=== PATIENT | female | born 1975 | race Caucasian/White ===

== ENCOUNTER 2024-04-06 11:24 | Outpatient (AMB) | payer MEDICARE, SELFPAY ==
--- NOTE | 2024-04-06 12:35 | AM.OFFWIN_ITS ---
Intake Vital Signs 04/06/24 12:36 Height 5 ft 4 in Weight 134 lb 4 oz BMI 23.0 BP 132/86 Blood Pressure Location Lt brachial Position Sitting Pulse 96 Pulse Source Pulse Oximeter Temp 98.0 F Temp Source Temporal Artery Scan Pulse Oximetry (%) 97 Oxygen Delivery Method Room Air Intake Visit Reasons: NURSE PRACTITIONER MANAGER-neck, rt shoulder pain Intake Note: Pt presents to the office today for neck pain and right shoulder pain. Pt states she has a history of spinal stenosis and degenerative disk disease. Pt states she has been dealing with this for years but recently has gotten worse. Pt states on Saturday she grabbed a liter of soda and the pain became excrutiating and caused numbness and radiating pain from her neck down to her right hand. Patient Tobacco Use Status: Never used Tobacco Allergies erythromycin base Allergy (Verified 04/06/24 12:41) Rash Sulfa (Sulfonamide Antibiotics) Allergy (Verified 04/06/24 12:41) Rash HPI NURSE PRACTITIONER MANAGER-neck, rt shoulder pain HPI Details This note is constructed using voice recognition software. While every effort has been made to ensure accuracy, engraver picture errors may have been included. The patient is a 48 year old female who presents to the clinic today with right shoulder pain since last Saturday. She reports a history of spinal stenosis and cervical disc issues which she is following specialist [facility] for the past several years. She has been advised that she will need surgery at some point and does have annual MRIs to monitor the progression of her stenosis. She reports that on Saturday she lifted a 1 L bottle of soda, which seemed to set off the pain. She reports that she is having numbness and tingling in the entirety of her forearm, with tight muscles sensation and inability to lift her arm above her head. 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 She is performing heat and ice, which did not seem to help the pain. She alternates between meloxicam and ibuprofen, and has also tried Tylenol, which has not helped the pain. FOR[facility]LY [facility] Social History Alcohol intake: current Alcohol intake frequency: a few times a week Patient Tobacco Use Status: Never used Tobacco Review of Systems Const All systems reviewed & are unremarkable except as noted in HPI and below Physical Exam Vital Signs: Last Vital Signs Temp 98.0 F 11/18/24 12:36 Pulse 96 04/06/24 12:36 BP 132/86 04/06/24 12:36 Pulse Ox 97 04/06/24 12:36 Oxygen Delivery Method Room Air 04/06/24 12:36 BMI result Body Mass Index 23.0 Const General: cooperative, healthy appearing, comfortable, no acute distress and well developed Orientation/consciousness: patient oriented x3 Limitations: no limitations Resp Effort & Inspection: normal respiratory effort and able to speak in complete sentences Skin General skin exam: no rashes or lesions noted Neuro General: patient oriented x3 Extrem Other: Abduction limited to 90 degrees due to pain. Increased muscle bulking over right side trapezius area. Strength 5/5, equal bilaterally. Distal neurovascular exam intact. General: Yes normal to inspection Assessment & Plan Assessment & Plan (1) Right arm pain: Code(s): M79.601 - Pain in right arm Plan: History and physical examination consistent with likely related to her spinal stenosis. Advised her to follow up with her care team for ongoing management. We will try a steroid with taper for symptomatic management. Advised avoidance of NSAIDs while she is taking the steroid. She may return to her NSAIDs after she has completed this. Physical therapy referral ordered to facilitate treatment plan. Plan See above for full details and plan. Orders: Orders PT Evaluation and Treatment Today M79.601 - Pain in right arm Medications: New prednisone 5 tablets daily for 2 days, then 4 tablets daily for 2 days, then 3 tablets daily for 2 days, then 2 tablets daily for 2 days, then 1 tablet daily for 2 days. 10 mg PO DIRECTED 30 tabs 0RF Coding Level of Care Code New Pt Level 3 (81960) Diagnoses Right arm pain M79.601
[2024-04-06 12:36] VITALS: BP 132/86; PULSE 96; TEMP 36.7; O2SAT 97; BMI 23.0
== END 2024-04-06 13:32 | disposition home or self-care (01) ==
PROVIDERS: PCP Nurse Practitioner Family; Visit Provider Registered Nurse
DX: M79.601 Pain in right arm (principal)

== ENCOUNTER → 2024-04-06 11:24 | Outpatient (BNVA) | payer MEDICARE, SELFPAY | PROVIDERS: PCP Nurse Practitioner Family; Visit Provider Registered Nurse | DX: M79.601 Pain in right arm (principal) | CPT/HCPCS: 99202 ==